=== PATIENT | male | born 1980 | race Hispanic/Latino ===

== ENCOUNTER 2025-01-14 18:51 | Emergency (ER) | payer SELFPAY ==
[~2025-01-14] VITALS: Ht 167.6 cm; Wt 72.6 kg
[2025-01-14 18:52] VITALS: BP 131/86; PULSE 80; RESP 20; TEMP 98
[2025-01-14] MEDS ORDERED: 0.9%NACL 1000ML 1,000 ML IV STA (18:55)
--- NOTE | 2025-01-14 19:33 | ERN ---
ED Note History of Present Illness Stated Complaint: HEADACHE Chief Complaint: Headache Time Seen by MD: 18:53 Time Seen by Midlevel: 18:59 Dictation: 44-year-old male with no past medical history coming in with complaints of frontal headache for the last three days. Patient also states he has had light sensitivity. Denies having any nausea, blurry vision, unilateral weakness, numbness or tingling. States earlier today he took Motrin which alleviated his headache but states with the headache returned. Denies any fever, cough, congestion, nausea, vomiting, chest pain or chest discomfort. Allergies: Coded Allergies: No Known Drug Intolerances (Unverified Allergy, Unknown, 01/14/25) Past Medical History Past Medical History: No Pertinent History Surgical History: None Review of System Dictation Constitutional: Negative for fever,chills, and weight loss Eyes: Negative for injury, pain,redness, and discharge ENT: Negative for injury,pain or swelling Cardiovascular: Negative for chest pain, palpitations, and edema Respiratory: Negative for shortness of breath, cough, and wheezing, Abdomen/GI: Negative for abdominal pain, nausea, vomiting, diarrhea, and constipation Back: Negative for injury and pain : Negative for injury, bleeding and discharge MS/Extremity: Negative for injury and deformity Skin: Negative for rash, and discoloration Neuro : Positive for headache,no weakness,no numbness, no tingling, and no seizure Psych: Negative for suicide ideation, homicidal ideation, and hallucinations Review of Systems: was completed Initial Vital Sign VS Vital Signs Date Time Temp Pulse Resp B/P (MAP) Pulse Ox O2 Delivery O2 Flow Rate FiO2 01/14/25 18:52 98.1 80 20 131/86 97 Room Air Physical Exam Dictation General: awake, alert, NAD Head/Face: Normocephalic, atraumatic Eyes: PERRL, EOMI, vision at baseline ENT: oral cavity clear, TMs clear, no signs of infection Neck: Trachea midline, supple, no nuchal rigidity Cardiovascular: RRR, normal S1/S2, No MRGs, no JVD Respiratory: CTAB, no respiratory distress, No rales or wheezes Abdomen: Soft, non-tender, non-distended, normal bowel sounds, no guarding or rebound. Skin: Warm, dry, normal turgor, no rash MS/Extremity: Pulses equal, no cyanosis, neurovascular intact, FROM Neuro: COAx4, GCS 15, strength 5/5, CN 2-12 intact, normal cerebellar exam, normal gait, Psych: Normal behavior, mood, and affect normal ED Course ED Course Orders Procedure Category Date Status Time Covid Rna Naat LAB 01/14/25 Logged 18:55 Influenza Type A & B, LAB 01/14/25 Logged Rapid 18:55 0.9%Nacl 1000ml (Ns PHA 01/14/25 Complete 1000ml) 18:55 Metoclopramide 10 PHA 01/14/25 Complete Mg/2 Ml Vial (Reglan 1 19:30 Diphenhydramine Hcl PHA 01/14/25 Complete (Benadryl Inj) 19:30 Ketorolac PHA 01/14/25 Complete Tromethamine 15mg/Ml 19:30 Current Medications Medications (Trade) Dose Ordered Sig/Noah Route PRN Reason Start Time Stop Time Status Last Admin Dose Admin Diphenhydramine HCl (BENAdryl INJ) 25 mg ONCE ONCE IV 01/14/25 19:30 01/14/25 19:31 DC Ketorolac Tromethamine (toRADol) 15 mg ONCE ONCE IV 01/14/25 19:30 01/14/25 19:31 DC Metoclopramide HCl (regLAN 10MG IV) 10 mg ONCE ONCE IVP 01/14/25 19:30 01/14/25 19:31 DC Sodium Chloride 1,000 ml @ 1,000 mls/hr Q1H STAT IV 01/14/25 18:55 01/14/25 19:54 DC Vital Signs Date Time Temp Pulse Resp B/P (MAP) Pulse Ox O2 Delivery O2 Flow Rate FiO2 01/14/25 18:52 98.1 80 20 131/86 97 Room Air Medical Decision Making MDM MDM: 44-year-old male with no past medical history coming in with complaints of frontal headache for the last three days. Patient also states he has had light sensitivity. Denies having any nausea, blurry vision, unilateral weakness, numbness or tingling. States earlier today he took Motrin which alleviated his headache but states with the headache returned. Denies any fever, cough, con gestion, nausea, vomiting, chest pain or chest discomfort. Was in the lobby due to no rooms available. Then Patient was in the ER hallway with the daughter who is also patient and notify the charge nurse that he does not want to be seen anymore. Differential diagnosis: Influenza, COVID, sinus headache Rationale: Tests considered and ordered secondary to shared decision making include: Previous outside records reviewed: Old ER visits. Risk of complication and/or morbidity or mortality of patient management: None Medications-Per medication reconciliation Need for hospitalization: Patient does not meet criteria for hospitalization. Need for emergency major/minor surgery: No There are no social concerns with this patient. Prescription drug management Prescriptions will include symptomatic care Patient's prior external medical records from other ER visits were reviewed by me as indicated. Prior testing and results from previous visits were reviewed. Prior tests were taken into account with medical decision making and resource utilization, independent historian/historians were used to obtain complete medical history. I independently interpreted the test that were performed, results were reviewed by me and considered findings on radiology if ordered. Medical management and examination interpretation discussions were had by me with other qualified healthcare professionals as indicated for the patient's care. DX & DISP Disposition: AMA Decision to Admit Date: Jan 14, 2025 Decision to Admit Time: 20:59 Departure Condition: Stable I have reviewed the case, and I agree with, Diagnosis and Plan JESUS MONROE CNP Jan 14, 2025 19:33
--- NOTE | 2025-01-14 19:39 | NUR ---
PT CALLED FOR BEDDING X 2. NO ANSWER
--- NOTE | 2025-01-14 20:03 | NUR ---
CALLED NO ANSWER
--- NOTE | 2025-01-14 20:17 | NUR ---
CALLED NO ANSWER
--- NOTE | 2025-01-14 20:54 | NUR ---
CALLED NO ANSWER, NO IN LOBBY OR RESTROOM, NO COMMUNICATION ON DESIRE TO LEAVE
--- NOTE | 2025-01-14 20:58 | NUR ---
PATIENT IN HALLWAY WITH DAUGHTER WHO IS ALSO A PATIENT. PATIENT STATES HE DOES NOT FEEL HE NEEDS ANY TREATMENT, DOES NOT WISH TO CONTINUE. ALL RISKS OF DECLINING MEDICAL TREATMENT EXPLAINED TO PATIENT INCLUDING , PATIENT VERBALIZES UNDERSTANDING, AMA FORM SIGNED AND PLACED ON CHART.
== END 2025-01-14 21:01 | disposition left against medical advice (07) ==
LOC: EDH 18:51
DX: R51.9 Headache, unspecified (principal); Z53.29 Procedure and treatment not carried out because of patient's decision for other reasons
CPT/HCPCS: 99282